=== PATIENT | female | born 1975 | race Caucasian/White ===

== ENCOUNTER → 2018-08-17 17:39 | Outpatient (REF) | payer OTHER, SELFPAY ==
[2018-08-17 19:16] LABS: Alanine Aminotransferase 39 IU/L (9-52); Albumin 4.4 g/dL (3.5-5.0); Albumin Globulin Ratio 1.8 (1.0-2.8); Alkaline Phosphatase 77 U/L (38-126); Aspartate Aminotransferase 22 IU/L (14-36); BUN Creatinine Ratio 21.4 (6-22); Bilirubin Total 0.3 mg/dL (0.2-1.3); Blood Urea Nitrogen 15 mg/dL (7-17); Calcium 9.9 mg/dL (8.4-10.2); Carbon Dioxide 28 mmol/L (22-32); Chloride 101 mmol/L (98-107); Cholesterol 183 mg/dL (140-199); Estimated Glomerular Filt Rate > 60.0 mL/min (>60); Globulin 2.5 g/dL (1.7-4.1); Glucose 106 mg/dL (70-100); HDL Cholesterol 52 mg/dL (40-60); HEMOLYSIS < 15 (0-50); LDL Cholesterol Calculated 102 mg/dL (<100); Sodium 140 mmol/L (137-145); Total Protein 6.9 g/dL (6.3-8.2); Triglycerides 146 mg/dL (35-150)
[2018-08-17 20:07] LABS: HIV 1 and 2 Antibody NEGATIVE (NEGATIVE); Hep C Virus Ab w/Reflex Quant NEGATIVE s/c (NEGATIVE)
[2018-08-17 20:28] LABS: Urine N gonorrhoeae NOT DETECTED
[2018-08-17 20:36] LABS: Urine Chlamydia NOT DETECTED
[2018-08-20 14:30] LABS: RPR Screen Nonreactive (Nonreactive)
[2018-08-21 15:49] LABS: HSV 2 IGG AB 4.88 index (< 0.90); HSV1IGG < 0.90 index (< 0.90)
== END ==
LOC: LAB 17:39
PROVIDERS: Visit Provider Physician Assistant Medical
DX: Z20.828 Contact with and (suspected) exposure to other viral communicable diseases (principal); Z13.220 Encounter for screening for lipoid disorders; Z79.899 Other long term (current) drug therapy
CPT/HCPCS: 36415; 80053; 80061; 86592; 86695; 86696; 86703; 86803; 87491; 87591

== ENCOUNTER → 2021-04-10 12:45 | Outpatient (CLI) | payer OTHER, SELFPAY ==
--- NOTE | 2021-04-10 12:51 | DI.MRI.S_ITS ---
PROCEDURE: MR WRIST LT WO CON INDICATIONS: Other specified injuries of left wrist, hand and f TECHNIQUE: Noncontrast coronal proton density fast spin echo and T2 fast spin echo with fat saturation; coronal 3-D gradient echo, axial T1 spin echo and T2 fast spin echo with fat saturation, sagittal T1 spin echo through the wrist. COMPARISON: [facility], CR, XR WRIST 3+ VIEWS LEFT, 02/16/2021, 11:48. FINDINGS: Image quality: Excellent. Bones and cartilage: The carpal bones are normally aligned. No discrete fracture. Marrow edema involving the proximal lunate could represent reactive change to joint degeneration, osteitis versus low-grade marrow contusion. Recommend differentiation with clinical history No evidence for avascular necrosis. Scattered degenerative subchondral sclerosis and spurring. Carpal ligaments: The scapholunate and lunotriquetral ligaments appear intact. In the absence of intra-articular contrast, the extrinsic carpal ligaments are not well identified. On sagittal images, the pisohamate ligament appears intact. Triangular fibrocartilage complex: The triangular fibrocartilage appears intact. The adjacent meniscal homolog appears normal in the absence of intra-articular contrast. The extensor carpi ulnaris tendon demonstrates mild tendinopathy/ interstitial tearing and tenosynovitis. Tendons and soft tissues: The carpal tunnel structures appear normal, including the median nerve. The ulnar nerve appears normal within Guyon's canal. All six extensor tendon compartments demonstrate normal morphology, without pathologic tendon sheath fluid. No soft tissue ganglion cysts. IMPRESSION: Mild extensor carpi ulnaris tendinopathy/interstitial tearing and low-grade tenosynovitis. Mild marrow edema involving the proximal lunate as above. Scattered degenerative subchondral sclerosis and spurring. Dictated by: Judson Kim M.D. on 04/12/2021 at 8:08 Approved by: Judson Kim M.D. on 04/12/2021 at 8:15
== END ==
PROVIDERS: PCP Family Medicine; Referring Provider Orthopaedic Surgery; Visit Provider Orthopaedic Surgery
DX: S69.82XA Other specified injuries of left wrist, hand and finger(s), initial encounter (principal); M65.832 Other synovitis and tenosynovitis, left forearm; X58.XXXA Exposure to other specified factors, initial encounter
CPT/HCPCS: 73221